=== PATIENT | female | born 1995 ===

== ENCOUNTER 2019-02-08 20:10 | Emergency (ER) | payer SELFPAY ==
[2019-02-08 20:11] VITALS: BMI 25.6
[2019-02-08 20:19] VITALS: BP 128/75; PULSE 78; RESP 18; TEMP 98.7; O2SAT 100
[2019-02-08 20:56] LABS: BASO % 0.6 % (0.0-2.0); EOS # 0.3 K/uL (0.0-0.7); EOS % 3.2 % (0.0-4.0); HEMOGLOBIN 11.9 g/dL (12.0-16.0); LYMPH # 2.4 K/uL (1.0-4.3); LYMPH % 30.4 % (20.0-40.0); MEAN CELL VOLUME 90.8 fl (81.0-99.0); MEAN CORPUSCULAR HEMOGLOBIN 29.8 pg (27.0-31.0); MEAN CORPUSCULAR HGB CONC 32.8 g/dL (33.0-37.0); MEAN PLATELET VOLUME 9.1 fl (7.2-11.7); MONO # 0.8 K/uL (0.0-0.8); MONO % 9.7 % (0.0-10.0); NEUT # 4.4 K/uL (1.8-7.0); NEUT % 56.1 % (50.0-75.0); NRBC % 0.1 % (0.0-0.0); RBC 3.99 Mil/uL (3.80-5.20); RED CELL DISTRIBUTION WIDTH 14.9 % (11.5-14.5); WHITE BLOOD COUNT 7.9 K/uL (4.8-10.8)
[2019-02-08 21:00] LABS: SQUAMOUS EPITHIAL 10 /hpf (0-5); URINE BACTERIA OCC (<OCC); URINE BILIRUBIN NEGATIVE (NEGATIVE); URINE BLOOD NEGATIVE (NEGATIVE); URINE CLARITY CLOUDY (Clear); URINE COLOR YELLOW (YELLOW); URINE GLUCOSE (UA) NEG (NEGATIVE); URINE LEUKOCYTE ESTERASE LARGE Leu/uL (Negative); URINE PROTEIN NEGATIVE (NEGATIVE)
[2019-02-08 21:08] LABS: ALB/GLOB RATIO 1.4 (1.0-2.1); ALBUMIN 4.2 g/dL (3.5-5.0); ALT/SGPT 34 U/L (9-52); AST/SGOT 25 U/L (14-36); BLOOD UREA NITROGEN 10 mg/dl (7-17); CALCIUM 9.3 mg/dL (8.4-10.2); GFR NON-AFRICAN AMERICAN > 60
--- NOTE | 2019-02-08 21:40 | ED PDOC ---
HPI: Female Pain Time Seen by Provider: 02/08/19 20:24 Chief Complaint (Nursing): Female Genitourinary Chief Complaint (Provider): Female Genitourinary History Per: Patient History/Exam Limitations: no limitations Onset/Duration Of Symptoms: Days Current Symptoms Are (Timing): Still Present Additional Complaint(s): 23 y/o female who is A0 and with no significant PMHx presents to the ED for evaluation of suprapubic abdominal pain for the past two weeks. Patient states pain comes and goes but has been progressively worsening since yesterday. Patient notes of experiencing 8/10 pain today. Of note, patient reports of having just returned from the [facility] earlier today. Patient states she was evaluated at a hospital in the [facility] yesterday where she had a positive test but an ultrasound that showed no gestation. Patient is here today requesting repeat blood work and US. Patient additionally notes of taking medications similar to Tylenol for pain. Patient states her last dose was earlier this morning. Otherwise, patient denies nausea, vomiting, urinary symptoms, vaginal discharge, vaginal bleeding, chest pain and leg sw elling. 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 provider LNMP: Middle december Abnormal Vaginal Bleeding: No Last Menstral Period: december : 2 Para: 1 Past Medical History Reviewed: Historical Data, Nursing Documentation, Vital Signs Vital Signs: Last Vital Signs Temp 98.7 F 02/08/19 20:15 Pulse 78 02/08/19 20:15 Resp 18 02/08/19 20:15 BP 128/75 02/08/19 20:15 Pulse Ox 100 02/08/19 20:15 - Medical History PMH: No Chronic Diseases - Surgical History Surgical History: No Surg Hx - Family History Family History: States: Unknown Family Hx - Immunization History Hx Tetanus Toxoid Vaccination: No Hx Influenza Vaccination: No Hx Pneumococcal Vaccination: No - Home Medications Home Medications: Ambulatory Orders Medication Instructions Recorded Acetaminophen [8 Hour Pain Relief] 650 mg PO Q8 PRN #20 tablet.er 02/08/19 Cephalexin [Keflex] 500 mg PO TID 7 Days #21 capsule 02/08/19 Multivit/Folic Acid/I 1 tab PO DAILY #30 tab 02/08/19 [ Plus] - Allergies Allergies/Adverse Reactions: Allergies Allergy/AdvReac Type Severity Reaction Status Date / Time No Known Allergies Allergy Verified 02/08/19 20:15 Review of Systems ROS Statement: Except As Marked, All Systems Reviewed And Found Negative Cardiovascular: Negative for: Chest Pain Gastrointestinal: Positive for: Abdominal Pain. Negative for: Nausea, Vomiting Genitourinary Female: Negative for: Dysuria, Frequency, Hematuria, Vaginal Discharge, Vaginal Bleeding Musculoskeletal: Negative for: Leg Pain Physical Exam - Reviewed Nursing Documentation Reviewed: Yes Vital Signs Reviewed: Yes - Physical Exam Comments: GENERAL APPEARANCE: Patient is awake, alert, oriented x 3, in no obvious discomfort. SKIN: Warm, dry; (-) cyanosis. EYES: (-) conjunctival pallor, (-) scleral icterus. ENMT: Mucous membranes moist. NECK: (-) tenderness, (-) stiffness, (-) lymphadenopathy. CHEST AND RESPIRATORY: (-) rales, (-) rhonchi, (-) wheezes; breath sounds equal bilaterally. HEART AND CARDIOVASCULAR: (-) irregularity; (-) murmur, (-) gallop. ABDOMEN AND GI: Soft. (-) distention. Bowel sounds active; (+) mild diffusely lower abdominal tenderness. (-) guarding, (-) rebound, (-) palpable masses, (-) CVA tenderness. EXTREMITIES: (-) deformity, (-) edema, (+) distal pulses. NEURO AND PSYCH: Mental status as above; (-) focal findings. - Laboratory Results Result Diagrams: 02/08/19 20:52 02/08/19 20:52 Lab Results: Total Bilirubin 0.7 mg/dl (0.2-1.3) 02/08/19 20:52 AST 25 U/L (14-36) 02/08/19 20:52 ALT 34 U/L (9-52) 02/08/19 20:52 Alkaline Phosphatase 34 U/L (38-126) L D 02/08/19 20:52 Total Protein 7.2 G/DL (6.3-8.2) 02/08/19 20:52 Albumin 4.2 g/dL (3.5-5.0) 02/08/19 20:52 Globulin 3.0 gm/dL (2.2-3.9) 02/08/19 20:52 Albumin/Globulin Ratio 1.4 (1.0-2.1) 02/08/19 20:52 Urine Color Yellow (YELLOW) 02/08/19 20:43 Urine Clarity Cloudy (Clear) 02/08/19 20:43 Urine pH 6.0 (5.0-8.0) 02/08/19 20:43 Ur Specific [place] 1.026 (1.003-1.030) 02/08/19 20:43 Urine Protein Negative mg/dL (NEGATIVE) 02/08/19 20:43 Urine Glucose (UA) Neg mg/dL (NEGATIVE) 02/08/19 20:43 Urine Ketones Negative mg/dL (NEGATIVE) 02/08/19 20:43 Urine Blood Negative (NEGATIVE) 02/08/19 20:43 Urine Nitrate Negative (NEGATIVE) 02/08/19 20:43 Urine Bilirubin Negative (NEGATIVE) 02/08/19 20:43 Urine Urobilinogen 1.0 mg/dL (0.2-1.0) 02/08/19 20:43 Ur Leukocyte Esterase Large Tucker/uL (Negative) 02/08/19 20:43 Urine RBC (Auto) 3 /hpf (0-3) 02/08/19 20:43 Urine Microscopic WBC 28 /hpf (0-5) H 02/08/19 20:43 Ur Squamous Epith Cells 10 /hpf (0-5) H 02/08/19 20:43 Urine Bacteria Occ (<OCC) H 02/08/19 20:43 Beta HCG, Quant 214.92 mIU/mL 02/08/19 20:52 - ECG O2 Sat by Pulse Oximetry: 100 (RA) Pulse Ox Interpretation: Normal Medical Decision Making Medical Decision Making: Time: 2037 Plan: -- Beta-HCG, Quantitative -- CMP -- ED Urine -- CBC with Differentials -- Tylenol 650 mg PO -- Urine C&S -- Urinalysis -- US OB Preg 1st Tri & OB Trans 2321 US OB Preg 1st Tri & OB Trans FINDINGS: GESTATION: An intrauterine 5.0 x 3.3 x 5.3 mm gestational sac is noted. It is out of range for age estimation. No detectable pole or cardiac activity as of yet. Short-term reevaluation and 7-10 days is recommended. UTERUS: A small anterior fundal mass measuring 1.2 x 1.0 cm in size thought compatible with a small fibroid. CERVIX: Closed. Unremarkable. OVARIES: An approximately 2.3 x 1.7 cm corpus luteum cyst is noted within the left ovary. Otherwise, unremarkable. No suspicious mass. FREE FLUID: No free fluid. IMPRESSION: 1. Small intrauterine gestational sac out of range for age estimation. Short- term reevaluation in 7-10 days recommended. 2. 2.3 x 1.7 cm left ovarian corpus luteum cyst. 3. Tiny 1.2 cm anterior fundal uterine fibroid. 2135 re eval pt is feeling better, reports pain is gone, abdomen is soft and non tender, pt with UTI will treat, hcg is low, early , no ectopic Discussed results, diagnosis, treatment, return precautions and f/u with pt who is understanding, in agreement and stable for dc Scribe Attestation: Documented by Keturah Pritchett, acting as a scribe Venkat Ware PA-C. Provider Scribe Attestation: All medical record entries made by the Scribe were at my direction and personally dictated by me. I have reviewed the chart and agree that the record accurately reflects my personal performance of the history, physical exam, medical decision making, and the department course for this patient. I have also personally directed, reviewed, and agree with the discharge instructions and disposition. Disposition - Clinical Impression Clinical Impression: UTI (urinary tract infection) in in first trimester, Ovarian cyst, left, Fibroid, uterine, Abdominal pain during - Patient ED Disposition Is Patient to be Admitted: No Counseled Patient/Family Regarding: Studies Performed, Diagnosis, Need For Followup, Rx Given - Disposition [facility] Disposition: Routine/Home Disposition Time: 23:39 Condition: IMPROVED Additional Instructions: Thank you for letting us take care of you today. You were treated for and urinary tract infection. The emergency medical care you received today was directed at your acute symptoms. If you were prescribed any medication, please fill it and take as directed. It may take several days for your symptoms to resolve. Return to the Emergency Department if your symptoms worsen, do not improve, or if you have any other problems. Please contact your doctor in 2 days for re-evaluation and follow up / or call one of the physicians/clinics you have been referred to that are listed on the Patient Visit Information form that is included in your discharge packet. Bring any paperwork you were given at discharge with you along with any medications you are taking to your follow up visit. Our treatment cannot replace ongoing medical care by a primary care provider (PCP) outside of the emergency depa rtment. Prescriptions: Acetaminophen [8 Hour Pain Relief] 650 mg PO Q8 PRN #20 tablet.er PRN Reason: Pain, Moderate (4-7) Cephalexin [Keflex] 500 mg PO TID 7 Days #21 capsule Multivit/Folic Acid/I [ Plus] 1 tab PO DAILY #30 tab Instructions: Ovarian Cysts, Uterine Fibroids, Urinary Tract Infection, Adult (DC), - The First Month Forms: [facility] (Israeli) Print Language: OCCITAN - POA Present On Arrival: None
--- NOTE | 2019-02-09 10:52 | US ---
Date of service: 02/08/2019 PROCEDURE: OB Pelvic Ultrasound HISTORY: suprapubic pain LMP: Unknown Serum beta HCG measures 214.9 COMPARISON: None available. FINDINGS: UTERUS: Gestational sac: Measures 0.5 cm, out of range Yolk sac: Not identified pole: Not identified Uterus measures 7.6 x 4.8 x 5.5 cm. Anteverted. Normal in size and appearance. Anterior small fundal fibroid on the left measuring 1.2 x 0.9 x 1.0 cm. CERVIX: Measures 3.6 cm. Long and closed. No cervical abnormality seen. RIGHT OVARY: Measures 1.9 x 1.2 x 3.1 cm. No mass lesion. Normal flow. LEFT OVARY: Measures 3.9 x 2.3 x 3.2 cm. Corpus luteum measuring 2.3 x 1.7 x 2.4. Normal flow. FREE FLUID: None. OTHER FINDINGS: None. IMPRESSION: Probable intrauterine gestational sac without yolk sac or pole yet identified. Findings may represent early normal/abnormal with ectopic not entirely excluded. Close clinical follow-up with serial pelvic sonography and serum beta HCG levels is recommended.
== END 2019-02-08 23:45 | disposition home or self-care (01) ==
LOC: H.ER 20:10
DX: O23.41 Unspecified infection of urinary tract in pregnancy, first trimester (principal); O34.11 Maternal care for benign tumor of corpus uteri, first trimester; O26.91 Pregnancy related conditions, unspecified, first trimester; R10.2 Pelvic and perineal pain; D25.9 Leiomyoma of uterus, unspecified

== ENCOUNTER 2019-03-10 11:21 | Emergency (ER) | payer MEDICAID ==
[2019-03-10 11:27] VITALS: RESP 16; BMI 26.7
[2019-03-10] MEDS ORDERED: Sodium Chloride 0.9% 1,000 ML IV STA (12:33)
--- NOTE | 2019-03-10 12:49 | ED PDOC ---
HPI: Headache Time Seen by Provider: 03/10/19 12:02 Chief Complaint (Nursing): Headache Chief Complaint (Provider): headache History Per: Patient History/Exam Limitations: no limitations Onset/Duration Of Symptoms: Days Current Symptoms Are (Timing): Still Present Severity: Severe Pain Scale Rating Of: 9 Preceeding Symptoms: None Associated Symptoms: Photophobia, Nausea. denies: Blurred Vision, Vomiting, Extremity Weakness Additional History Per: Patient Additional Complaint(s): 23 year old female presents to the Emergency Department c/o right sided headache for two weeks for which she has been taking one tab of Tylenol 325mg once a day will minimal relief. Patient states headache improves slight after medication but returns the following day. she reports photophobia, right eye pain. Patient states she has never had this type of headache in the past. She denies vomiting, fever, weakness, numbness, urinary symptoms, dizziness. Last dose of Tylenol 325mg was at 10am. Patient is currently 7wks , denies abdominal pain, back pain, vaginal bleeding, vaginal discharge. Past Medical History Reviewed: Historical Data, Nursing Documentation, Vital Signs Vital Signs: Last Vital Signs Temp 98.5 F 03/10/19 11:26 Pulse 71 03/10/19 11:26 Resp 16 03/10/19 11:26 BP 107/66 03/10/19 11:26 Pulse Ox 99 03/10/19 11:26 Primary Care Provider: FAMILY PROVIDER,NO - Medical History PMH: No Chronic Diseases - Surgical History Surgical History: No Surg Hx - Family History Family History: States: Unknown Family Hx - Living Arrangements Living Arrangements: With Family - Social History Current smoker - smoking cessation education provided: No Ex-Smoker (has not smoked in the last 12 months): No Alcohol: None Drugs: Denies - Immunization History Hx Tetanus Toxoid Vaccination: No Hx Influenza Vaccination: No Hx Pneumococcal Vaccination: No - Home Medications Home Medications: Ambulatory Orders Medication Instructions Recorded Acetaminophen [8 Hour Pain Relief] 650 mg PO Q8 PRN #20 tablet.er 02/08/19 Cephalexin [Keflex] 500 mg PO TID 7 Days #21 capsule 02/08/19 Multivit/Folic Acid/I 1 tab PO DAILY #30 tab 02/08/19 [ Plus] Miconazole Nitrate [Monistat 1] 1 each VG HS #1 kit 03/10/19 - Allergies Allergies/Adverse Reactions: Allergies Allergy/AdvReac Type Severity Reaction Status Date / Time No Known Allergies Allergy Verified 02/08/19 20:15 Review of Systems ROS Statement: Except As Marked, All Systems Reviewed And Found Negative Constitutional: Negative for: Fever, Chills, Sweats, Weakness, Malaise, Weight loss Eyes: Negative for: Pain, Vision Change, Conjunctivae Inflammation, Eyelid Inflammation, Redness ENT: Negative for: Ear Pain, Nose Pain, Mouth Swelling, Throat Pain, Throat Swelling Cardiovascular: Negative for: Chest Pain, Palpitations, Light Headedness Respiratory: Negative for: Cough, Shortness of Breath, SOB with Exertion, Wheezing Gastrointestinal: Positive for: Nausea. Negative for: Vomiting, Abdominal Pain, Constipation Genitourinary Female: Negative for: Dysuria Musculoskeletal: Negative for: Neck Pain, Shoulder Pain, Arm Pain, Back Pain, Hand Pain, Leg Pain, Foot Pain Skin: Negative for: Rash Neurological: Positive for: Headache. Negative for: Weakness, Numbness, In coordination, Change in Speech, Confusion, Seizures, Altered Mental Status, Dizziness Physical Exam - Reviewed Nursing Documentation Reviewed: Yes Vital Signs Reviewed: Yes - Physical Exam Appears: Positive for: Well, Non-toxic, No Acute Distress Head Exam: Positive for: ATRAUMATIC, NORMAL INSPECTION, NORMOCEPHALIC Skin: Positive for: Normal Color, Warm, DRY Eye Exam: Positive for: Normal appearance, EOMI, PERRL. Negative for: Nystagmus, Periorbital swelling, Periorbital tenderness, Conjunctival injection, Scleral icterus ENT: Positive for: Normal ENT Inspection, TM Is/Are (intact). Negative for: Pharyngeal Erythema, Tonsillar Exudate, Tonsillar Swelling Neck: Positive for: Normal, Painless ROM, Supple Cardiovascular/Chest: Positive for: Regular Rate, Rhythm, Chest Non Tender Respiratory: Positive for: CNT, Normal Breath Sounds Gastrointestinal/Abdominal: Positive for: Normal Exam, Bowel Sounds, Soft. Negative for: Tenderness, Distended Back: Positive for: Normal Inspection. Negative for: L CVA Tenderness, R CVA Tenderness, Vertebral Tenderness Extremity: Positive for: Normal ROM. Negative for: Tenderness, Pedal Edema, Calf Tenderness, Capillary Refill, Deformity, Swelling Neurological/Psych: Positive for: Awake, Alert, Normal Tone, Oriented, Gait (steady), microsoft dynamics developer II-XII (intact). Negative for: Cerebellar Tests, Lethargic, Motor/Sensory Deficits, Facial Droop - Laboratory Results Result Diagrams: 03/10/19 12:51 03/10/19 12:51 Urine POC: Positive - ECG O2 Sat by Pulse Oximetry: 99 Medical Decision Making Medical Decision Making: --CBC --CMP --UA --URINE PREG --0.9NS 1 L --REGLAN 14:45 Patient re-evaluated by me. Patient sleeping, easily arousable. Patient headache has improved. ivf continue to infuse well. will allow for continue fluids. Patient reports at this time, she had similar headaches with first in first trimester. PO intake, if patient maintains to be stable and no worsening of headache, will D/C home. 15:37 temp: 98.3 hr: 66 b/p:116/58 rr: 20 o2sat: 98% rm air 15:42 Patient tolerated food. Clinical findings discussed with patient. No further work up needed in ED. Encouraged to maintain hydrated. Patient given detailed return to ED precautions. Patient states understanding and agrees with plan. Disposition - Clinical Impression Clinical Impression: Headache in , Yeast UTI - Patient ED Disposition Is Patient to be Admitted: No Counseled Patient/Family Regarding: Diagnosis, Need For Followup, Rx Given - Disposition Disposition: Routine/Home Disposition Time: 15:45 Condition: IMPROVED Prescriptions: Miconazole Nitrate [Monistat 1] 1 each VG HS #1 kit Instructions: Yeast Infection (DC), Migraine Headaches in Adults Forms: [facility] (Wolof) - POA Present On Arrival: None
[2019-03-10 13:20] LABS: BASO % 0.3 % (0.0-2.0); EOS # 0.1 K/uL (0.0-0.7); EOS % 0.9 % (0.0-4.0); HEMOGLOBIN 12.7 g/dL (12.0-16.0); LYMPH # 1.2 K/uL (1.0-4.3); LYMPH % 16.1 % (20.0-40.0); MEAN CELL VOLUME 90.2 fl (81.0-99.0); MEAN CORPUSCULAR HEMOGLOBIN 30.1 pg (27.0-31.0); MEAN CORPUSCULAR HGB CONC 33.4 g/dL (33.0-37.0); MEAN PLATELET VOLUME 9.3 fl (7.2-11.7); MONO # 0.6 K/uL (0.0-0.8); MONO % 8.3 % (0.0-10.0); NEUT # 5.4 K/uL (1.8-7.0); NEUT % 74.4 % (50.0-75.0); RBC 4.23 Mil/uL (3.80-5.20); RED CELL DISTRIBUTION WIDTH 13.9 % (11.5-14.5); WHITE BLOOD COUNT 7.3 K/uL (4.8-10.8)
[2019-03-10 13:45] LABS: SQUAMOUS EPITHIAL 5 /hpf (0-5); URINE BILIRUBIN NEGATIVE (NEGATIVE); URINE BLOOD NEGATIVE (NEGATIVE); URINE CLARITY TURBID (Clear); URINE COLOR YELLOW (YELLOW); URINE GLUCOSE (UA) NEG (NEGATIVE); URINE LEUKOCYTE ESTERASE NEG Leu/uL (Negative); URINE PROTEIN 30 mg/dL (NEGATIVE); URINE UROBILINOGEN 0.2-1.0 mg/dL (0.2-1.0)
[2019-03-10 13:50] LABS: ALB/GLOB RATIO 1.3 (1.0-2.1); ALBUMIN 4.3 g/dL (3.5-5.0); ALT/SGPT 25 U/L (9-52); AST/SGOT 19 U/L (14-36); BLOOD UREA NITROGEN 7 mg/dl (7-17); CALCIUM 9.5 mg/dL (8.4-10.2); GFR NON-AFRICAN AMERICAN > 60
[2019-03-10 13:59] LABS: WBC CLUMPS FEW /hpf
[2019-03-10 15:37] VITALS: BP 116/58; PULSE 66; TEMP 98.3
[2019-03-10 15:45] VITALS: O2SAT 99
== END 2019-03-10 16:06 | disposition home or self-care (01) ==
LOC: H.ER 11:21
DX: O26.91 Pregnancy related conditions, unspecified, first trimester (principal); R51 Headache; Z3A.01 Less than 8 weeks gestation of pregnancy; B37.49 Other urogenital candidiasis; Z87.891 Personal history of nicotine dependence
CPT/HCPCS: 80053; 81003; 81025; 85025; 96374; 99285; J2765; J7030